=== PATIENT | female | born 1940 ===

== ENCOUNTER 2022-08-30 02:17 | Inpatient (IN) | payer MEDICARE, SELFPAY ==
[2022-08-30] VITALS (8 sets, daily range): BP systolic 134–172; BP diastolic 63–78; PULSE 71–85; RESP 12–18; TEMP 36.4–37.4; O2SAT 94–98; BMI 29.4
--- NOTE | 2022-08-30 02:37 | ED.GENADULT ---
HPI - General Adult General Chief complaint: Abdominal Pain Stated complaint: abdominal pain Time Seen by Provider: 08/30/22 02:27 Source: patient and EMS Mode of arrival: EMS Limitations: other (Dementia) History of Present Illness HPI narrative: Patient comes to the emergency room from home. Patient has history of dementia and lives by herself. Per EMS, the patient called because she has been complaining of abdominal pain all day. Patient stated the same here in the emergency room. EMS moist concern about the patient's current living situation. They recommend that the patient does not get discharged back to her current residence. EMS will file. Patient states that she has abdominal pain, no other complaints. Patient states that she was recently discharged from [facility], she does not remember how long or why she was in the hospital. Related Data Allergies Allergy/AdvReac Type Severity Reaction Status Date / Time codeine [CODEINE] Allergy Unknown VOMITING Unverified 11/13/19 16:24 morphine [MORPHINE] Allergy Unknown VOMIT Unverified 11/13/19 16:24 Penicillins [PENICILLINS] Allergy Unknown UNKNOWN Unverified 11/13/19 16:24 prednisone [PREDNISONE] Allergy Unknown HEADACHE Unverified 11/13/19 16:24 Sulfa (Sulfonamide Allergy Unknown UNKNOWN Unverified 11/13/19 16:24 Antibiotics) [SULFA (SULFONAMIDE ANTIBIOTICS)] From CEFTIN Allergy Unknown VOMITTING Uncoded 11/13/19 16:24 From DEMEROL Allergy Unknown VOMITTING Uncoded 11/13/19 16:24 Review of Systems Review of Systems: Constitutional : No Weight loss, No Fever, No Chills, No Night Sweats, No Fatigue, No Malaise ENT/Mouth : No Hearing loss, No Ear Pain, No Nasal Congestion, No Sinus Pain, No Hoarseness, No sore throat, No Rhinorrhea, No Swallowing Difficulty Eyes: No Eye Pain, No Swelling, No Redness, No Foreign Body, No Discharge, No Vision Changes Cardiovascular : No Chest Pain, No SOB, No Dyspnea on Exertion, No Orthopnea, No Edema, No Palpitations Respiratory : No Cough, No Sputum, No Wheezing, No Smoke Exposure, No Dyspnea Gastrointestinal : No Nausea, No Vomiting, No Diarrhea, No Constipation, complaining of abdominal pain Genitourinary : no irregular bleeding, No Dysuria, No Urinary Frequency, No Hematuria, No Urinary Incontinence, No Urgency, No Flank Pain, No Urinary Flow Changes, No Hesitancy Musculoskeletal : No joint pain, No Myalgias, No Joint Swelling Skin : No Skin Lesions, No rash Neuro : No Weakness, No Numbness, No Paresthesias, No Loss of Consciousness, No Dizziness, No Headache Psych : No Anxiety/Panic, No Depression, No SI/HI/AH/VH, No Social Issues, Heme/Lymph: No Bruising, No Bleeding,No Lymphadenopathy Endocrine : No Polyuria, No Polydipsia, No Temperature Intolerance COUNTS INCLUDE 234 BEDS AT THE [facility] Past Medical History Source: unable to obtain (Patient has dementia, does not remember her medical problem) Medical History (Updated 08/30/22 @ 06:29 by Katlyn Roe MD) Cognitive impairment Hypertension Kidney stone Sepsis Social History Social History Alcohol intake: never Smoked in Last 30 Days: No Use of substances other than those prescribed or required for medical reasons: No Advance Directives: No Advance Directives Information Provided: Yes Physical Exam ED Vital Signs: Vital Signs - 24 hr 08/30/22 02:53 08/30/22 03:15 08/30/22 04:35 Temperature 99.4 F 99.4 F 98.4 F Pulse Rate 85 85 80 Respiratory Rate 16 16 16 Blood Pressure 144/69 H 144/69 H 148/63 H Pulse Oximetry 94 94 97 Oxygen Delivery Method Room Air Room Air Room Air BMI result Body Mass Index 29.4 Const Other: Appearance: Alert. Oriented X3. No acute distress. Eyes: Pupils equal, round and reactive to light. ENT: Pharynx normal. Neck: Normal inspection. Neck supple. No lymph nodes noted. No crepitus CVS: Normal heart rate and rhythm. Pulses normal. Normal S1 and S2 Respiratory: No respiratory distress. Breath sounds normal. No Wheezing. No rales Abdomen: Soft does not seem to be tender to palpation, no rigidity, no rebound. : Patient has a Smith catheter in place, the urine has brownish tea-colored urine Skin: Skin warm and dry. Normal skin color. Normal skin turgor. Extremities: No lower extremity edema. No Lacerations. No Rash Neuro: Oriented X 3. No motor deficit. No sensory deficit. Moving all extremities. No slurred speech. CN 2 through 12 grossly intact Psych: calm, cooperative, normal affect Course Course Course Narrative: -we requested records from [facility] -we did not have a clear history from the patient other than she was recently at [facility] in that she has abdominal pain. -all of her labs and imaging pending I was able to obtain records from [facility]. Patient was last seen at [facility] yesterday. Patient was seen for pink/reddish urine. They mentioned in their note the patient was recently hospitalized with urosepsis secondary to an obstructing stone status post ureteral stent. Patient had already completed a 7 day course of ceftriaxone and was discharged with a Smith catheter in place which was started on August 25. Patient has a follow-up appointment on September 13 for Smith removal and voiding trial. Patient was discharged yesterday with a prescription of OfferIQ for acute uncomplicated cystitis Medications Administered Discontinued Medications Generic Name Dose Route Start Last Admin Trade Name Freq PRN Reason Stop Dose Admin Ceftriaxone Sodium 1 gm/ 50 mls @ 100 mls/hr 08/30/22 03:30 08/30/22 05:47 Sodium Chloride IV 08/30/22 03:59 Infused ONCE ONE Infusion Ceftriaxone Sodium 1 gm/ 50 mls @ 100 mls/hr 08/30/22 05:01 08/30/22 05:30 Sodium Chloride IV 08/30/22 05:30 Not Given ONCE ONE Iohexol 85 ml 08/30/22 04:13 08/30/22 04:14 Iohexol 350 Mg/Ml 100 Ml Infus..Btl IV 08/30/22 04:14 85 ml ONCE ONE Administration Ondansetron HCl 4 mg 08/30/22 03:30 08/30/22 04:13 Ondansetron Hcl 4 Mg/2 Ml Vial IVPUSH 08/30/22 03:31 4 mg ONCE ONE Administration Medical Decision Making Medical Decision Making [facility] Narrative: -I reviewed patient's labs, white blood cell count 6.1, coagulation, chemistry unremarkable. Lipase is is slightly elevated at 93, -UA positive for UTI, admission considered. Patient given a dose of ceftriaxone, patient to continue p.o. cefuroxime open discharge -03:32: Patient has no fever, blood pressure 144/69, not tachycardic, sepsis is not suspected. -Patient receiving IV fluids and ceftriaxone -my interpretation of CT scan, left stents in place I spoke with our radiologist on-call, patient had a CT scan of the abdomen done, incidentally, we found a pulmonary embolism in the right lung. -patient has dementia, confused at times, unclear she can make her own decisions. -we tried calling the phone number listed as her contact emergency, no one picked up the phone. -discussing with Dr. Tavarez, patient will be admitted -As mentioned above, EMS reported that the patient lives by herself. Patient states that she lives with family? However, after I spoke with her again, patient states that she does live by herself. Unknown if she has a healthcare proxy. -patient may need a psych eval to assess for capacity Differential Diagnosis Differential Diagnoses: The differential diagnosis associated with the presentation includes (UTI, pyelonephritis, pulmonary embolism) Admission/Observation Consideration of admission/observation: Escalation of care including admission/observation considered Consult Healthcare Provider Management of the patient was discussed with: Hospitalist Lab Data MDM Lab Attestation statement: I reviewed the patient's lab results. 08/30/22 02:48 08/30/22 02:48 Labs: Lab Results 08/30/22 08/30/22 08/30/22 Range/Units 02:48 02:48 02:48 WBC 6.1 (4.8-10.8) X10*3/uL RBC 4.68 (4.20-5.50) X10*6/uL Hgb 13.3 (12.0-16.0) g/dl Hct 40.5 (37.0-47.0) % MCV 86.5 (80.0-98.0) fL MCH 28.4 (27.0-33.0) pg MCHC 32.8 (31.0-35.0) g/dl RDW 14.1 (11.0-16.0) % Plt Count 369 (160-400) X10*3/uL MPV 9.7 (9.4-12.3) fL Immature Gran % (Auto) 0.7 H (0.0-0.4) % Neut % (Auto) 62.9 (45-73) % Lymph % (Auto) 24.2 (20-40) % Traverse % (Auto) 11.0 (2-11) % Eos % (Auto) 0.7 (0-4) % Baso % (Auto) 0.5 (0-2) % Lymph # (Auto) 1.5 (1.2-4.9) X10*3/uL Traverse # (Auto) 0.7 (0.1-1.2) X10*3/uL Eos # (Auto) 0.0 (0.0-0.4) X10*3/uL Baso # (Auto) 0.0 (0.0-0.2) X10*3/uL Abs Immat Gran (auto) 0.04 H (0.00-0.03) X10*3/uL Absolute Neuts (auto) 3.9 (2.0-8.3) x10*3/uL Absolute Nucleated RBC 0.000 (0.0-0.012) X10*3/uL Nucleated RBC % (auto) 0.0 (0.0-0.2) /100WBC PT 11.9 (10.0-13.1) SEC INR 1.0 (0.9-1.1) Sodium 138 (135-145) mmol/L Potassium 3.7 (3.3-5.1) mmol/L Chloride 107 (96-108) mmol/L Carbon Dioxide 18 L (22-29) mmol/L Anion Gap 17 (12-20) BUN 18 H (9-16) mg/dL Creatinine 0.70 (0.5-1.4) mg/dL Estim Creat Clear Calc 54.7 Estimated GFR > 60 Random Glucose 95 (60-115) mg/dL Lactic Acid (0.5-2.0) mmol/L Calcium 9.6 (8.4-10.2) mg/dL Magnesium 2.1 (1.6-2.6) mg/dL Total Bilirubin 0.8 (0.0-1.0) mg/dL Direct Bilirubin 0.3 (0.0-0.5) mg/dL AST 23 (5-31) U/L ALT 12 (0-31) U/L Alkaline Phosphatase 163 H (39-117) U/L Ammonia (13-55) umol/L Troponin I High Sens (<3.5-17.0) ng/L B-Natriuretic Peptide (<100) pg/mL Total Protein 7.2 (6.5-8.0) g/dL Albumin 3.5 (3.5-5.0) g/dL Lipase 93 H (8-78) U/L Urine Color Urine Appearance Urine pH (5.0-9.0) Ur Specific [place] (1.005-1.025) Urine Protein (Neg-Trace) mg/dL Urine Glucose (UA) (Negative) mg/dL Urine Ketones (Negative) mg/dL Urine Blood (Negative) Urine Nitrite (Negative) Ur Leukocyte Esterase (Negative) Urine RBC (0-2) /HPF Urine WBC (0-5) /HPF Ur Squamous Epith Cells (0-2) /HPF Urine Bacteria (None Seen) Hyaline Casts (0-2) /LPF Urine Opiates Screen (Not Detect) Urine Fentanyl Screen (Not Detect) Ur Barbiturates Screen (Not Detect) Ur Phencyclidine Scrn (Not Detect) Ur Amphetamines Screen (Not Detect) U Benzodiazepines Scrn (Not Detect) Urine Cocaine Screen (Not Detect) U Marijuana (THC) Screen (Not Detect) Ethyl Alcohol < 10 mg/dL 08/30/22 08/30/22 08/30/22 Range/Units 02:48 02:48 02:48 WBC (4.8-10.8) X10*3/uL RBC (4.20-5.50) X10*6/uL Hgb (12.0-16.0) g/dl Hct (37.0-47.0) % MCV (80.0-98.0) fL MCH (27.0-33.0) pg MCHC (31.0-35.0) g/dl RDW (11.0-16.0) % Plt Count (160-400) X10*3/uL MPV (9.4-12.3) fL Immature Gran % (Auto) (0.0-0.4) % Neut % (Auto) (45-73) % Lymph % (Auto) (20-40) % Traverse % (Auto) (2-11) % Eos % (Auto) (0-4) % Baso % (Auto) (0-2) % Lymph # (Auto) (1.2-4.9) X10*3/uL Traverse # (Auto) (0.1-1.2) X10*3/uL Eos # (Auto) (0.0-0.4) X10*3/uL Baso # (Auto) (0.0-0.2) X10*3/uL Abs Immat Gran (auto) (0.00-0.03) X10*3/uL Absolute Neuts (auto) (2.0-8.3) x10*3/uL Absolute Nucleated RBC (0.0-0.012) X10*3/uL Nucleated RBC % (auto) (0.0-0.2) /100WBC PT (10.0-13.1) SEC INR (0.9-1.1) Sodium Cancelled (135-145) mmol/L Potassium Cancelled (3.3-5.1) mmol/L Chloride Cancelled (96-108) mmol/L Carbon Dioxide Cancelled (22-29) mmol/L Anion Gap Cancelled (12-20) BUN Cancelled (9-16) mg/dL Creatinine Cancelled (0.5-1.4) mg/dL Estim Creat Clear Calc Cancelled Estimated GFR Cancelled Random Glucose Cancelled (60-115) mg/dL Lactic Acid 1.1 (0.5-2.0) mmol/L Calcium Cancelled (8.4-10.2) mg/dL Magnesium Cancelled (1.6-2.6) mg/dL Total Bilirubin (0.0-1.0) mg/dL Direct Bilirubin (0.0-0.5) mg/dL AST (5-31) U/L ALT (0-31) U/L Alkaline Phosphatase (39-117) U/L Ammonia 28 (13-55) umol/L Troponin I High Sens (<3.5-17.0) ng/L B-Natriuretic Peptide (<100) pg/mL Total Protein (6.5-8.0) g/dL Albumin (3.5-5.0) g/dL Lipase (8-78) U/L Urine Color Urine Appearance Urine pH (5.0-9.0) Ur Specific [place] (1.005-1.025) Urine Protein (Neg-Trace) mg/dL Urine Glucose (UA) (Negative) mg/dL Urine Ketones (Negative) mg/dL Urine Blood (Negative) Urine Nitrite (Negative) Ur Leukocyte Esterase (Negative) Urine RBC (0-2) /HPF Urine WBC (0-5) /HPF Ur Squamous Epith Cells (0-2) /HPF Urine Bacteria (None Seen) Hyaline Casts (0-2) /LPF Urine Opiates Screen (Not Detect) Urine Fentanyl Screen (Not Detect) Ur Barbiturates Screen (Not Detect) Ur Phencyclidine Scrn (Not Detect) Ur Amphetamines Screen (Not Detect) U Benzodiazepines Scrn (Not Detect) Urine Cocaine Screen (Not Detect) U Marijuana (THC) Screen (Not Detect) Ethyl Alcohol Cancelled mg/dL 08/30/22 08/30/22 08/30/22 Range/Units 02:48 02:48 02:48 WBC (4.8-10.8) X10*3/uL RBC (4.20-5.50) X10*6/uL Hgb (12.0-16.0) g/dl Hct (37.0-47.0) % MCV (80.0-98.0) fL MCH (27.0-33.0) pg MCHC (31.0-35.0) g/dl RDW (11.0-16.0) % Plt Count (160-400) X10*3/uL MPV (9.4-12.3) fL Immature Gran % (Auto) (0.0-0.4) % Neut % (Auto) (45-73) % Lymph % (Auto) (20-40) % Traverse % (Auto) (2-11) % Eos % (Auto) (0-4) % Baso % (Auto) (0-2) % Lymph # (Auto) (1.2-4.9) X10*3/uL Traverse # (Auto) (0.1-1.2) X10*3/uL Eos # (Auto) (0.0-0.4) X10*3/uL Baso # (Auto) (0.0-0.2) X10*3/uL Abs Immat Gran (auto) (0.00-0.03) X10*3/uL Absolute Neuts (auto) (2.0-8.3) x10*3/uL Absolute Nucleated RBC (0.0-0.012) X10*3/uL Nucleated RBC % (auto) (0.0-0.2) /100WBC PT (10.0-13.1) SEC INR (0.9-1.1) Sodium (135-145) mmol/L Potassium (3.3-5.1) mmol/L Chloride (96-108) mmol/L Carbon Dioxide (22-29) mmol/L Anion Gap (12-20) BUN (9-16) mg/dL Creatinine (0.5-1.4) mg/dL Estim Creat Clear Calc Estimated GFR Random Glucose (60-115) mg/dL Lactic Acid (0.5-2.0) mmol/L Calcium (8.4-10.2) mg/dL Magnesium (1.6-2.6) mg/dL Total Bilirubin (0.0-1.0) mg/dL Direct Bilirubin (0.0-0.5) mg/dL AST (5-31) U/L ALT (0-31) U/L Alkaline Phosphatase (39-117) U/L Ammonia (13-55) umol/L Troponin I High Sens 2.9 (<3.5-17.0) ng/L B-Natriuretic Peptide 13 (<100) pg/mL Total Protein (6.5-8.0) g/dL Albumin (3.5-5.0) g/dL Lipase (8-78) U/L Urine Color Red A Urine Appearance Cloudy Urine pH 5.5 (5.0-9.0) Ur Specific [place] 1.015 (1.005-1.025) Urine Protein 300 (3+) H (Neg-Trace) mg/dL Urine Glucose (UA) Negative (Negative) mg/dL Urine Ketones Negative (Negative) mg/dL Urine Blood Large (3+) H (Negative) Urine Nitrite Negative (Negative) Ur Leukocyte Esterase Large (3+) H (Negative) Urine RBC >20 H (0-2) /HPF Urine WBC >50 H (0-5) /HPF Ur Squamous Epith Cells 0-2 (0-2) /HPF Urine Bacteria Trace (None Seen) Hyaline Casts 11-20 (0-2) /LPF Urine Opiates Screen (Not Detect) Urine Fentanyl Screen (Not Detect) Ur Barbiturates Screen (Not Detect) Ur Phencyclidine Scrn (Not Detect) Ur Amphetamines Screen (Not Detect) U Benzodiazepines Scrn (Not Detect) Urine Cocaine Screen (Not Detect) U Marijuana (THC) Screen (Not Detect) Ethyl Alcohol mg/dL 07/05/23 Range/Units 02:48 WBC (4.8-10.8) X10*3/uL RBC (4.20-5.50) X10*6/uL Hgb (12.0-16.0) g/dl Hct (37.0-47.0) % MCV (80.0-98.0) fL MCH (27.0-33.0) pg MCHC (31.0-35.0) g/dl RDW (11.0-16.0) % Plt Count (160-400) X10*3/uL MPV (9.4-12.3) fL Immature Gran % (Auto) (0.0-0.4) % Neut % (Auto) (45-73) % Lymph % (Auto) (20-40) % Traverse % (Auto) (2-11) % Eos % (Auto) (0-4) % Baso % (Auto) (0-2) % Lymph # (Auto) (1.2-4.9) X10*3/uL [place]verse # (Auto) (0.1-1.2) X10*3/uL Eos # (Auto) (0.0-0.4) X10*3/uL Baso # (Auto) (0.0-0.2) X10*3/uL Abs Immat Gran (auto) (0.00-0.03) X10*3/uL Absolute Neuts (auto) (2.0-8.3) x10*3/uL Absolute Nucleated RBC (0.0-0.012) X10*3/uL Nucleated RBC % (auto) (0.0-0.2) /100WBC PT (10.0-13.1) SEC INR (0.9-1.1) Sodium (135-145) mmol/L Potassium (3.3-5.1) mmol/L Chloride (96-108) mmol/L Carbon Dioxide (22-29) mmol/L Anion Gap (12-20) BUN (9-16) mg/dL Creatinine (0.5-1.4) mg/dL Estim Creat Clear Calc Estimated GFR Random Glucose (60-115) mg/dL Lactic Acid (0.5-2.0) mmol/L Calcium (8.4-10.2) mg/dL Magnesium (1.6-2.6) mg/dL Total Bilirubin (0.0-1.0) mg/dL Direct Bilirubin (0.0-0.5) mg/dL AST (5-31) U/L ALT (0-31) U/L Alkaline Phosphatase (39-117) U/L Ammonia (13-55) umol/L Troponin I High Sens (<3.5-17.0) ng/L B-Natriuretic Peptide (<100) pg/mL Total Protein (6.5-8.0) g/dL Albumin (3.5-5.0) g/dL Lipase (8-78) U/L Urine Color Urine Appearance Urine pH (5.0-9.0) Ur Specific [place] (1.005-1.025) Urine Protein (Neg-Trace) mg/dL Urine Glucose (UA) (Negative) mg/dL Urine Ketones (Negative) mg/dL Urine Blood (Negative) Urine Nitrite (Negative) Ur Leukocyte Esterase (Negative) Urine RBC (0-2) /HPF Urine WBC (0-5) /HPF Ur Squamous Epith Cells (0-2) /HPF Urine Bacteria (None Seen) Hyaline Casts (0-2) /LPF Urine Opiates Screen Not Detected (Not Detect) Urine Fentanyl Screen Not Detected (Not Detect) Ur Barbiturates Screen Not Detected (Not Detect) Ur Phencyclidine Scrn Not Detected (Not Detect) Ur Amphetamines Screen Not Detected (Not Detect) U Benzodiazepines Scrn Not Detected (Not Detect) Urine Cocaine Screen Not Detected (Not Detect) U Marijuana (THC) Screen Not Detected (Not Detect) Ethyl Alcohol mg/dL Radiology Impression Discussion of test interpretation with radiology: I have reviewed the radiologist's reading. Radiologist Impression: FINDINGS: LUNG BASES: Incidental filling defects in the right lower lobe posterior basal segmental pulmonary arteries. Patchy low density opacities in the right lower lobe posteriorly may represent corresponding evolving pulmonary infarcts or ischemic pneumonitis with or without atelectasis. LIVER, GALLBLADDER, AND BILIARY TREE: The liver is normal in size, shape, and attenuation. Subcentimeter cyst in hepatic segment 5. No suspicious hepatic lesion or no intra or extrahepatic biliary ductal dilatation is present. The gallbladder is unremarkable with no evidence of radiopaque gallstones, gallbladder wall thickening, or obvious pericholecystic inflammatory changes.? PANCREAS: Unremarkable.? SPLEEN: Unremarkable.? ADRENAL GLANDS: Unremarkable.? KIDNEYS AND URETERS: Left nephroureteral stent in place. Mild accompanying urothelial thickening and hyperemia may relate to chronic inflammation from the indwelling stent. Tiny calcifications layer dependently within the left renal pelvis, and in the inferior left renal calyces. Further assessment is confounded by trace urographic leak screening contrast bilaterally. Kidneys enhance symmetrically. No hydronephrosis. There are a few subcentimeter renal cysts which are simple in appearance. No follow-up imaging recommended. BLADDER: Decompressed by Smith catheter.? GASTROINTESTINAL TRACT: Small sliding-type hiatal hernia. Stomach otherwise unremarkable. Normal small bowel. Scattered colonic diverticula, most concentrated within the sigmoid colon. No evidence of diverticulitis.? ABDOMINAL WALL: No significant hernia is appreciated.? LYMPH NODES: Normal. VASCULAR: Aorta is atherosclerotic but normal caliber. Patent vascular structures. PELVIC VISCERA: Hysterectomy. No adnexal abnormalities.? OSSEOUS STRUCTURES: No acute or suspicious osseous abnormalities. New but chronic appearing mild compression deformity of the L3 superior endplate. CT/CT abdomen pelvis w IV con IMPRESSION: *? Incidental right lower lobe posterior basal segmental pulmonary emboli, with associated probable small pulmonary infarct(s) involving the right lower lobe posterior basal segment. *? Left nephroureteral stent in place. Tiny calcifications layer dependently within the left renal pelvis and inferior left renal calyces. *? Presumably mild reactive urothelial hyperemia of the left renal pelvis, without evidence of kian nephritis/pyelonephritis. *? Scattered colonic diverticula without evidence of diverticulitis. ? ? This critical result was discussed with Dr Roe at 08/30/2022 5:10 AM and it was ascertained that the content and urgency of the report was understood at the time of direct communication. Independent Historian Clinical information obtained from an independent historian. History obtained from or confirmed by: EMS External Record Review External record reviewed: Other ([facility]) Critical Care Time Critical Care Time Critical Care Time: Yes Total Critical Care Time: 90 Attestation: I have personally provided critical care time. Time includes review of lab data, radiology results, discussion with consultants, and monitoring for potential decompensation. Intervention performed as documented. Discharge Plan Discharge Clinical Impression: Pulmonary embolism, Acute UTI, Dementia Patient Disposition: Admitted As Inpatient
--- NOTE | 2022-08-30 03:17 | PC.NURSE ---
Pt presents to ER via EMS for right side flank pain. Pt has hx of Alzheimer's and is a poor historian. Per EMS, pt was seen and admitted for a UTI about a month ago. Pt has a chronic michaud, assumed to be from the previous admission. EMS also reported that pt was making some SI statements. EMS reported pt lives alone, and has a hard time caring for herself. EMS filed a report. I made MD aware that pt should be seen by case management. Pt presents alert and oriented to person, place, and time, but is unable to recall events. Pt stated she had pain at the beginning of the assessment, then denied it at the end. Pt's michaud is draining tea-colored urine. Pt reports she feels urgency to go. Denies nausea/vomiting/sob. A 20g IV was inserted in the left AC, labs were drawn, urines were collected, EKG obtained. Pt waiting lab results at this time.
--- NOTE | 2022-08-30 03:53 | MHC.EDTECH ---
Late Entry, Patient arrived by ambulance, patient was changed into hospital attire, vitals taken then placed on property assessment monitor, EKG,labs and UA obtained. Call quinn within reach
--- NOTE | 2022-08-30 04:16 | PC.NURSE ---
Pt reporting spots in front of her eyes, saying they are new spots, and they look like a hairnet. Pt also asked if she has a catheter. She does, in fact, have a chronic catheter.
--- NOTE | 2022-08-30 04:45 | MHC.EDTECH ---
This tech completed hourly rounding,vitals were taken and warm blanket giving. Pt is resting comfortably at this time and call quinn is within reach.
--- NOTE | 2022-08-30 05:40 | PC.NURSE ---
Attempted to call pt's home, hoping someone is home, no response. I then called Evelin, grandchild listed as a contact. There was no answer, I left a voicemail requesting a call back.
--- NOTE | 2022-08-30 05:46 | PC.NURSE ---
Pt states her family around is her son Bud Woods and his girlfriend Marilin Cardenas. Unable to give contact information.
--- NOTE | 2022-08-30 06:29 | PM.IMHP ---
History of Present Illness Date of Service: 08/30/22 Chief Complaint: Abdominal pain This is a 81-year-old female with pertinent history of essential hypertension, dementia presents to the emergency department for evaluation of abdominal pain. Patient was recently admitted with urosepsis secondary to obstructing stone status post ureteral stent placement and completed 7 day course of ceftriaxone. Patient was discharged with Smith in place on 08/25 for urine retention. She has an appointment with Urology on 09/13 for Smith removal and voiding trial. Patient is a poor historian. As per EMS, patient's current living situation is not good and they recommend that the patient not be discharged to her current residence. History obtained from chart review and ER provider. Unable to obtain review of systems. In the emergency department, imaging with PE Review of Systems Review of Systems: Yes Unobtainable due to mental condition PMFSH Medical History Cognitive impairment Hypertension Kidney stone Sepsis Pertinent family history: Not significant Social History Alcohol intake: never Smoked in Last 30 Days: No Use of substances other than those prescribed or required for medical reasons: No Advance Directives: No Advance Directives Information Provided: Yes Meds Allergies Allergy/AdvReac Type Severity Reaction Status Date / Time codeine [CODEINE] Allergy Unknown VOMITING Unverified 11/13/19 16:24 morphine [MORPHINE] Allergy Unknown VOMIT Unverified 11/13/19 16:24 Penicillins [PENICILLINS] Allergy Unknown UNKNOWN Unverified 11/13/19 16:24 prednisone [PREDNISONE] Allergy Unknown HEADACHE Unverified 11/13/19 16:24 Sulfa (Sulfonamide Allergy Unknown UNKNOWN Unverified 11/13/19 16:24 Antibiotics) [SULFA (SULFONAMIDE ANTIBIOTICS)] From CEFTIN Allergy Unknown VOMITTING Uncoded 11/13/19 16:24 From DEMEROL Allergy Unknown VOMITTING Uncoded 11/13/19 16:24 Active Medications: Current Medications Acetaminophen (Acetaminophen 325 Mg Tablet) 650 mg PO Q6H PRN PRN Reason: Pain, Mild (Pain Scale 1-3) Enoxaparin Sodium (Enoxaparin Sodium 80 Mg/0.8 Ml Syringe) 70 mg SUBCUT Q12H JODI Melatonin (Melatonin 3 Mg Tablet) 6 mg PO BEDTIME PRN PRN Reason: Insomnia Ondansetron HCl (Ondansetron Hcl 4 Mg/2 Ml Vial) 4 mg IVPUSH Q8H PRN PRN Reason: Nausea and Vomiting Sodium Chloride (0.9 % Sodium Chloride Flush 3 Ml Syringe) 3 ml IVFLUSH QSHIFT [facility] Physical Exam Vital Signs and Narrative: Vital Signs: Last Vital Signs Temp 98.4 F 08/30/22 04:35 Pulse 80 08/30/22 04:35 Resp 16 08/30/22 04:35 BP 148/63 H 08/30/22 04:35 Pulse Ox 97 08/30/22 04:35 O2 Del Method Room Air 08/30/22 04:35 BMI result Body Mass Index 29.4 Elderly female lying in bed in no distress Neck supple, no JVD Regular rate and rhythm, S1-S2 heard Decreased breath sound at bases Abdomen soft nontender, no guarding, no rigidity Patient is awake, alert and oriented to self, disoriented to place, time and person ; no focal motor deficit Psych: Normal mood No pedal edema Results Labs 08/30/22 02:48 08/30/22 02:48 Labs: Laboratory Results - last 24 hr 08/30/22 08/30/22 08/30/22 02:48 02:48 02:48 MCV 86.5 MCH 28.4 MCHC 32.8 RDW 14.1 Plt Count 369 MPV 9.7 Immature Gran % (Auto) 0.7 H Neut % (Auto) 62.9 Lymph % (Auto) 24.2 [place] % (Auto) 11.0 Eos % (Auto) 0.7 Baso % (Auto) 0.5 Lymph # (Auto) 1.5 [place] # (Auto) 0.7 Eos # (Auto) 0.0 Baso # (Auto) 0.0 Abs Immat Gran (auto) 0.04 H Absolute Neuts (auto) 3.9 Absolute Nucleated RBC 0.000 Nucleated RBC % (auto) 0.0 PT 11.9 INR 1.0 Anion Gap 17 Estim Creat Clear Calc 54.7 Estimated GFR > 60 Random Glucose 95 Lactic Acid Calcium 9.6 Magnesium 2.1 Total Bilirubin 0.8 Direct Bilirubin 0.3 AST 23 ALT 12 Alkaline Phosphatase 163 H Ammonia Troponin I High Sens B-Natriuretic Peptide Total Protein 7.2 Albumin 3.5 Lipase 93 H Urine Color Urine Appearance Urine pH Ur Specific [place] Urine Protein Urine Glucose (UA) Urine Ketones Urine Blood Urine Nitrite Ur Leukocyte Esterase Urine RBC Urine WBC Ur Squamous Epith Cells Urine Bacteria Hyaline Casts Urine Opiates Screen Urine Fentanyl Screen Ur Barbiturates Screen Ur Phencyclidine Scrn Ur Amphetamines Screen U Benzodiazepines Scrn Urine Cocaine Screen U Marijuana (THC) Screen Ethyl Alcohol < 10 08/30/22 08/30/22 08/30/22 02:48 02:48 02:48 MCV MCH MCHC RDW Plt Count MPV Immature Gran % (Auto) Neut % (Auto) Lymph % (Auto) [place] % (Auto) Eos % (Auto) Baso % (Auto) Lymph # (Auto) [place] # (Auto) Eos # (Auto) Baso # (Auto) Abs Immat Gran (auto) Absolute Neuts (auto) Absolute Nucleated RBC Nucleated RBC % (auto) PT INR Anion Gap Cancelled Estim Creat Clear Calc Cancelled Estimated GFR Cancelled Random Glucose Cancelled Lactic Acid 1.1 Calcium Cancelled Magnesium Cancelled Total Bilirubin Direct Bilirubin AST ALT Alkaline Phosphatase Ammonia 28 Troponin I High Sens B-Natriuretic Peptide Total Protein Albumin Lipase Urine Color Urine Appearance Urine pH Ur Specific [place] Urine Protein Urine Glucose (UA) Urine Ketones Urine Blood Urine Nitrite Ur Leukocyte Esterase Urine RBC Urine WBC Ur Squamous Epith Cells Urine Bacteria Hyaline Casts Urine Opiates Screen Urine Fentanyl Screen Ur Barbiturates Screen Ur Phencyclidine Scrn Ur Amphetamines Screen U Benzodiazepines Scrn Urine Cocaine Screen U Marijuana (THC) Screen Ethyl Alcohol Cancelled 08/30/22 08/30/22 08/30/22 02:48 02:48 02:48 MCV MCH MCHC RDW Plt Count MPV Immature Gran % (Auto) Neut % (Auto) Lymph % (Auto) [place] % (Auto) Eos % (Auto) Baso % (Auto) Lymph # (Auto) [place] # (Auto) Eos # (Auto) Baso # (Auto) Abs Immat Gran (auto) Absolute Neuts (auto) Absolute Nucleated RBC Nucleated RBC % (auto) PT INR Anion Gap Estim Creat Clear Calc Estimated GFR Random Glucose Lactic Acid Calcium Magnesium Total Bilirubin Direct Bilirubin AST ALT Alkaline Phosphatase Ammonia Troponin I High Sens 2.9 B-Natriuretic Peptide 13 Total Protein Albumin Lipase Urine Color Red A Urine Appearance Cloudy Urine pH 5.5 Ur Specific [place] 1.015 Urine Protein 300 (3+) H Urine Glucose (UA) Negative Urine Ketones Negative Urine Blood Large (3+) H Urine Nitrite Negative Ur Leukocyte Esterase Large (3+) H Urine RBC >20 H Urine WBC >50 H Ur Squamous Epith Cells 0-2 Urine Bacteria Trace Hyaline Casts 11-20 Urine Opiates Screen Urine Fentanyl Screen Ur Barbiturates Screen Ur Phencyclidine Scrn Ur Amphetamines Screen U Benzodiazepines Scrn Urine Cocaine Screen U Marijuana (THC) Screen Ethyl Alcohol 08/30/22 02:48 MCV MCH MCHC RDW Plt Count MPV Immature Gran % (Auto) Neut % (Auto) Lymph % (Auto) [place] % (Auto) Eos % (Auto) Baso % (Auto) Lymph # (Auto) [place] # (Auto) Eos # (Auto) Baso # (Auto) Abs Immat Gran (auto) Absolute Neuts (auto) Absolute Nucleated RBC Nucleated RBC % (auto) PT INR Anion Gap Estim Creat Clear Calc Estimated GFR Random Glucose Lactic Acid Calcium Magnesium Total Bilirubin Direct Bilirubin AST ALT Alkaline Phosphatase Ammonia Troponin I High Sens B-Natriuretic Peptide Total Protein Albumin Lipase Urine Color Urine Appearance Urine pH Ur Specific [place] Urine Protein Urine Glucose (UA) Urine Ketones Urine Blood Urine Nitrite Ur Leukocyte Esterase Urine RBC Urine WBC Ur Squamous Epith Cells Urine Bacteria Hyaline Casts Urine Opiates Screen Not Detected Urine Fentanyl Screen Not Detected Ur Barbiturates Screen Not Detected Ur Phencyclidine Scrn Not Detected Ur Amphetamines Screen Not Detected U Benzodiazepines Scrn Not Detected Urine Cocaine Screen Not Detected U Marijuana (THC) Screen Not Detected Ethyl Alcohol Imaging Radiologist's Impressions: Impressions Abdomen/Pelvis CT 08/30/22 04:10 IMPRESSION: * Incidental right lower lobe posterior basal segmental pulmonary emboli, with associated probable small pulmonary infarct(s) involving the right lower lobe posterior basal segment. * Left nephroureteral stent in place. Tiny calcifications layer dependently within the left renal pelvis and inferior left renal calyces. * Presumably mild reactive urothelial hyperemia of the left renal pelvis, without evidence of kian nephritis/pyelonephritis. * Scattered colonic diverticula without evidence of diverticulitis. This critical result was discussed with Dr Roe at 08/30/2022 5:10 AM and it was ascertained that the content and urgency of the report was understood at the time of direct communication. Assessment and Plan (1) Pulmonary embolism: Status: Acute (2) Acute UTI: Status: Acute Plan This is a 81-year-old female with pertinent history of essential hypertension, dementia presents to the emergency department for evaluation of abdominal pain. #. Acute non massive right lower lobe PE: Will admit patient and initiating therapeutic Lovenox. Transition to p.o. anticoagulants upon discharge #. Acute UTI: Initiating empiric IV Rocephin. Follow urine culture #. Living situation. Patient's living situation poor as per EMS. Will consult case technician #. Dementia: On donepezil. Maintain sleep-wake cycle #. Essential hypertension. On lisinopril Med rec pending DVT prophylaxis: Therapeutic Lovenox Full code. Unable to contact family members. Readdress code status in a.m. Cardiac diet Admit as inpatient and will require two night minimum hospital stay for IV antibiotics and therapeutic Lovenox. Dispo pending Time Spent With Patient Time: Total time managing care of this patient today ____ minutes. Quality Stroke Does the patient have a stroke diagnosis?: No VTE Prior VTE?: No VTE Risk Level:: Medical - moderate - high VTE Device Contraindication: Treatment Not Indicated VTE Drug Contraindication: Treatment Not Indicated
--- NOTE | 2022-08-30 07:08 | PC.NURSE ---
sr on monitor, skin wpd, alert, no complaints, no sob or pain, nad
--- NOTE | 2022-08-30 07:53 | PHA.MEDREC ---
Pharmacy Consult ? Medication Reconciliation Pharmacy has completed the medication reconciliation. Spoke to patient at bedside, said she takes her blood pressure pill and her Donepezil when she has it.
--- NOTE | 2022-08-30 09:54 | HO.PM.IMPN ---
Subjective Subjective Date of Service: 08/30/22 Interval History: flank pain Physical Exam Vital Signs: Vital Signs: Last Vital Signs Temp 97.6 F 08/30/22 09:32 Pulse 71 08/30/22 09:32 Resp 18 08/30/22 09:32 BP 172/78 H 08/30/22 09:32 Pulse Ox 97 08/30/22 09:32 O2 Del Method Room Air 08/30/22 09:32 BMI result Body Mass Index 29.4 alert, oriented times 3, but poor historian, and insight Objective Data Active Medications Acetaminophen (Acetaminophen 325 Mg Tablet) 650 mg PO Q6H PRN PRN Reason: Pain, Mild (Pain Scale 1-3) Donepezil HCl (Donepezil Hcl 10 Mg Tablet) 10 mg PO BEDTIME JODI Enoxaparin Sodium (Enoxaparin Sodium 80 Mg/0.8 Ml Syringe) 70 mg SUBCUT Q12H [facility] Last Admin: 08/30/22 07:05 Dose: 70 mg Documented By: KATERYNA Ceftriaxone Sodium 1 gm/ (Sodium Chloride) 50 mls @ 100 mls/hr IV Q24H [facility] Lisinopril (Lisinopril 10 Mg Tablet) 30 mg PO DAILY JODI; Protocol Melatonin (Melatonin 3 Mg Tablet) 6 mg PO BEDTIME PRN PRN Reason: Insomnia Multivitamins/Vitamin C (Multivitamin Tablet) 1 tab PO DAILY [facility] Ondansetron HCl (Ondansetron Hcl 4 Mg/2 Ml Vial) 4 mg IVPUSH Q8H PRN PRN Reason: Nausea and Vomiting Pharmacy Consult (Consult Rx Perform Med Rec) 1 each MISCELLANE ONCE PRN PRN Reason: Consult order Sodium Chloride (0.9 % Sodium Chloride Flush 3 Ml Syringe) 3 ml IVFLUSH QSHIFT [facility] Last Admin: 08/30/22 07:06 Dose: 3 ml Documented By: KATERYNA Labs 08/30/22 02:48 08/30/22 02:48 Labs: Laboratory Results - last 24 hr 08/30/22 08/30/22 08/30/22 02:48 02:48 02:48 MCV 86.5 MCH 28.4 MCHC 32.8 RDW 14.1 Plt Count 369 MPV 9.7 Immature Gran % (Auto) 0.7 H Neut % (Auto) 62.9 Lymph % (Auto) 24.2 [place] % (Auto) 11.0 Eos % (Auto) 0.7 Baso % (Auto) 0.5 Lymph # (Auto) 1.5 [place] # (Auto) 0.7 Eos # (Auto) 0.0 Baso # (Auto) 0.0 Abs Immat Gran (auto) 0.04 H Absolute Neuts (auto) 3.9 Absolute Nucleated RBC 0.000 Nucleated RBC % (auto) 0.0 PT 11.9 INR 1.0 Anion Gap 17 Estim Creat Clear Calc 54.7 Estimated GFR > 60 Random Glucose 95 Lactic Acid Calcium 9.6 Magnesium 2.1 Total Bilirubin 0.8 Direct Bilirubin 0.3 AST 23 ALT 12 Alkaline Phosphatase 163 H Ammonia Troponin I High Sens B-Natriuretic Peptide Total Protein 7.2 Albumin 3.5 Lipase 93 H Urine Color Urine Appearance Urine pH Ur Specific [place] Urine Protein Urine Glucose (UA) Urine Ketones Urine Blood Urine Nitrite Ur Leukocyte Esterase Urine RBC Urine WBC Ur Squamous Epith Cells Urine Bacteria Hyaline Casts Urine Opiates Screen Urine Fentanyl Screen Ur Barbiturates Screen Ur Phencyclidine Scrn Ur Amphetamines Screen U Benzodiazepines Scrn Urine Cocaine Screen U Marijuana (THC) Screen Ethyl Alcohol < 10 08/30/22 08/30/22 08/30/22 02:48 02:48 02:48 MCV MCH MCHC RDW Plt Count MPV Immature Gran % (Auto) Neut % (Auto) Lymph % (Auto) [place] % (Auto) Eos % (Auto) Baso % (Auto) Lymph # (Auto) [place] # (Auto) Eos # (Auto) Baso # (Auto) Abs Immat Gran (auto) Absolute Neuts (auto) Absolute Nucleated RBC Nucleated RBC % (auto) PT INR Anion Gap Cancelled Estim Creat Clear Calc Cancelled Estimated GFR Cancelled Random Glucose Cancelled Lactic Acid 1.1 Calcium Cancelled Magnesium Cancelled Total Bilirubin Direct Bilirubin AST ALT Alkaline Phosphatase Ammonia 28 Troponin I High Sens B-Natriuretic Peptide Total Protein Albumin Lipase Urine Color Urine Appearance Urine pH Ur Specific [place] Urine Protein Urine Glucose (UA) Urine Ketones Urine Blood Urine Nitrite Ur Leukocyte Esterase Urine RBC Urine WBC Ur Squamous Epith Cells Urine Bacteria Hyaline Casts Urine Opiates Screen Urine Fentanyl Screen Ur Barbiturates Screen Ur Phencyclidine Scrn Ur Amphetamines Screen U Benzodiazepines Scrn Urine Cocaine Screen U Marijuana (THC) Screen Ethyl Alcohol Cancelled 08/30/22 08/30/22 08/30/22 02:48 02:48 02:48 MCV MCH MCHC RDW Plt Count MPV Immature Gran % (Auto) Neut % (Auto) Lymph % (Auto) [place] % (Auto) Eos % (Auto) Baso % (Auto) Lymph # (Auto) [place] # (Auto) Eos # (Auto) Baso # (Auto) Abs Immat Gran (auto) Absolute Neuts (auto) Absolute Nucleated RBC Nucleated RBC % (auto) PT INR Anion Gap Estim Creat Clear Calc Estimated GFR Random Glucose Lactic Acid Calcium Magnesium Total Bilirubin Direct Bilirubin AST ALT Alkaline Phosphatase Ammonia Troponin I High Sens 2.9 B-Natriuretic Peptide 13 Total Protein Albumin Lipase Urine Color Red A Urine Appearance Cloudy Urine pH 5.5 Ur Specific [place] 1.015 Urine Protein 300 (3+) H Urine Glucose (UA) Negative Urine Ketones Negative Urine Blood Large (3+) H Urine Nitrite Negative Ur Leukocyte Esterase Large (3+) H Urine RBC >20 H Urine WBC >50 H Ur Squamous Epith Cells 0-2 Urine Bacteria Trace Hyaline Casts 11-20 Urine Opiates Screen Urine Fentanyl Screen Ur Barbiturates Screen Ur Phencyclidine Scrn Ur Amphetamines Screen U Benzodiazepines Scrn Urine Cocaine Screen U Marijuana (THC) Screen Ethyl Alcohol 08/30/22 02:48 MCV MCH MCHC RDW Plt Count MPV Immature Gran % (Auto) Neut % (Auto) Lymph % (Auto) [place] % (Auto) Eos % (Auto) Baso % (Auto) Lymph # (Auto) [place] # (Auto) Eos # (Auto) Baso # (Auto) Abs Immat Gran (auto) Absolute Neuts (auto) Absolute Nucleated RBC Nucleated RBC % (auto) PT INR Anion Gap Estim Creat Clear Calc Estimated GFR Random Glucose Lactic Acid Calcium Magnesium Total Bilirubin Direct Bilirubin AST ALT Alkaline Phosphatase Ammonia Troponin I High Sens B-Natriuretic Peptide Total Protein Albumin Lipase Urine Color Urine Appearance Urine pH Ur Specific [place] Urine Protein Urine Glucose (UA) Urine Ketones Urine Blood Urine Nitrite Ur Leukocyte Esterase Urine RBC Urine WBC Ur Squamous Epith Cells Urine Bacteria Hyaline Casts Urine Opiates Screen Not Detected Urine Fentanyl Screen Not Detected Ur Barbiturates Screen Not Detected Ur Phencyclidine Scrn Not Detected Ur Amphetamines Screen Not Detected U Benzodiazepines Scrn Not Detected Urine Cocaine Screen Not Detected U Marijuana (THC) Screen Not Detected Ethyl Alcohol Assessment and Plan (1) Dementia: Status: Acute Plan 81F PMH htn, dementia, presented with flank pain, EMS noted concern for living conditions, incidental finding of RLL PE bilateral flank pain, uti recent ureteral stent placed rocephin, cultures, eval acute RLL PE lovenox, change to oral if no intervention alzheimers dementia with concern for living situiation conitnue aricept htn lisiniopirl full code reason for continued hospitalization: gu eval for ongoing flank pain, awaiting cultures Time Spent With Patient Time: Total time managing care of this patient today ____ minutes. Quality Stroke Does the patient have a stroke diagnosis?: No VTE Prior VTE?: No VTE Risk Level:: Medical - moderate - high VTE Device Contraindication: Treatment Not Indicated VTE Drug Contraindication: Treatment Not Indicated
--- NOTE | 2022-08-30 10:08 | PM.UROCN ---
History of Present Illness Consult details Consult date: 08/30/22 Narrative: Asha is an 81 year old female with h/o dementia on aricept, ED records reviewed; the patient was recently discharged from [facility] where she had a ureteral stent placed for obstructive uropathy from stone and treated for UTI, represented to [facility] ED prior to this admission and sent home on macrobid. Medicine noted PE on imaging. Urine c/s pending. Pt with flank pain likely secondary to presence of stent. CT imaging ureteral stent in normal positioning. No surgical intervention indicated at this time. Expect hematuria due to stent, with anticoagulation. Review of Systems Review of Systems: limited due to dementia, 10 point ROS otherwise negative other then stated [facility] Past Medical History Medical History Cognitive impairment Hypertension Kidney stone Sepsis Social History Social History Household Members: None Housing: House Do you presently have visiting nurse or other home services: No Alcohol intake: never Patient Tobacco Use Status: Never used Tobacco Meds Allergies Allergy/AdvReac Type Severity Reaction Status Date / Time codeine [CODEINE] Allergy Unknown VOMITING Unverified 11/13/19 16:24 morphine [MORPHINE] Allergy Unknown VOMIT Unverified 11/13/19 16:24 Penicillins [PENICILLINS] Allergy Unknown UNKNOWN Unverified 11/13/19 16:24 prednisone [PREDNISONE] Allergy Unknown HEADACHE Unverified 11/13/19 16:24 Sulfa (Sulfonamide Allergy Unknown UNKNOWN Unverified 11/13/19 16:24 Antibiotics) [SULFA (SULFONAMIDE ANTIBIOTICS)] From CEFTIN Allergy Unknown VOMITTING Uncoded 11/13/19 16:24 From DEMEROL Allergy Unknown VOMITTING Uncoded 11/13/19 16:24 Active Medications: Current Medications Acetaminophen (Acetaminophen 325 Mg Tablet) 650 mg PO Q6H PRN PRN Reason: Pain, Mild (Pain Scale 1-3) Donepezil HCl (Donepezil Hcl 10 Mg Tablet) 10 mg PO BEDTIME JODI Enoxaparin Sodium (Enoxaparin Sodium 80 Mg/0.8 Ml Syringe) 70 mg SUBCUT Q12H JODI Last Admin: 08/30/22 07:05 Dose: 70 mg Ceftriaxone Sodium 1 gm/ (Sodium Chloride) 50 mls @ 100 mls/hr IV Q24H JODI Lisinopril (Lisinopril 10 Mg Tablet) 30 mg PO DAILY JODI; Protocol Melatonin (Melatonin 3 Mg Tablet) 6 mg PO BEDTIME PRN PRN Reason: Insomnia Multivitamins/Vitamin C (Multivitamin Tablet) 1 tab PO DAILY [facility] Ondansetron HCl (Ondansetron Hcl 4 Mg/2 Ml Vial) 4 mg IVPUSH Q8H PRN PRN Reason: Nausea and Vomiting Pharmacy Consult (Consult Rx Perform Med Rec) 1 each MISCELLANE ONCE PRN PRN Reason: Consult order Sodium Chloride (0.9 % Sodium Chloride Flush 3 Ml Syringe) 3 ml IVFLUSH QSHIFT [facility] Last Admin: 08/30/22 07:06 Dose: 3 ml Home Medications Medication Instructions Recorded Confirmed Last Taken Type donepezil 10 mg tablet 10 mg PO BEDTIME 08/30/22 08/30/22 Unknown History lisinopril 30 mg tablet 30 mg PO DAILY 08/30/22 08/30/22 Unknown History multivitamin 1 tab PO DAILY 08/30/22 08/30/22 Unknown History Physical Exam Vital Signs: Vital Signs: Last Vital Signs Temp 97.6 F 08/30/22 09:32 Pulse 71 08/30/22 09:32 Resp 18 08/30/22 09:32 BP 172/78 H 08/30/22 09:32 Pulse Ox 97 08/30/22 09:32 O2 Del Method Room Air 08/30/22 09:32 BMI result Body Mass Index 29.4 Const: General: cooperative and no acute distress Orientation/consciousness: patient oriented x3 HEENT: Head: Yes normal to inspection, Yes normocephalic and Yes atraumatic Eyes: Conjunctivae: conjunctivae normal Neck: Neck: Yes normal visual inspection and Yes trachea midline Chest: Chest palpation & inspection: normal inspection of the chest Resp: Effort & Inspection: normal respiratory effort Cardio: Rate: regular rate GI: Other: mild tenderness on right side Inspection: Yes normal to inspection Palpation (GI): Soft to palpation Neuro: General: patient oriented x3 Psych: Appearance: grossly normal Results Labs 08/30/22 02:48 08/30/22 02:48 Labs: Abnormal lab results 08/30/22 08/30/22 08/30/22 Range/Units 02:48 02:48 02:48 Immature Gran % (Auto) 0.7 H (0.0-0.4) % Abs Immat Gran (auto) 0.04 H (0.00-0.03) X10*3/uL Carbon Dioxide 18 L (22-29) mmol/L BUN 18 H (9-16) mg/dL Alkaline Phosphatase 163 H (39-117) U/L Lipase 93 H (8-78) U/L Urine Color Red A Urine Protein 300 (3+) H (Neg-Trace) mg/dL Urine Blood Large (3+) H (Negative) Ur Leukocyte Esterase Large (3+) H (Negative) Urine RBC >20 H (0-2) /HPF Urine WBC >50 H (0-5) /HPF Short CBC 08/30/22 Range/Units 02:48 WBC 6.1 (4.8-10.8) X10*3/uL Hgb 13.3 (12.0-16.0) g/dl Hct 40.5 (37.0-47.0) % Plt Count 369 (160-400) X10*3/uL BMP 08/30/22 08/30/22 02:48 02:48 Sodium 138 Cancelled Potassium 3.7 Cancelled Chloride 107 Cancelled Carbon Dioxide 18 L Cancelled BUN 18 H Cancelled Creatinine 0.70 Cancelled Calcium 9.6 Cancelled Liver Function 08/30/22 Range/Units 02:48 Total Bilirubin 0.8 (0.0-1.0) mg/dL Direct Bilirubin 0.3 (0.0-0.5) mg/dL AST 23 (5-31) U/L ALT 12 (0-31) U/L Alkaline Phosphatase 163 H (39-117) U/L Albumin 3.5 (3.5-5.0) g/dL Urine 08/30/22 Range/Units 02:48 Urine Color Red A Urine Appearance Cloudy Urine pH 5.5 (5.0-9.0) Ur Specific [place] 1.015 (1.005-1.025) Urine Protein 300 (3+) H (Neg-Trace) mg/dL Urine Glucose (UA) Negative (Negative) mg/dL Imaging Abdomen CT scan report/results: report reviewed and image reviewed CT scan - pelvis: report reviewed and image reviewed Additional studies: Date of Service: 08/30/22 EXAMINATION: CT ABDOMEN AND PELVIS WITH CONTRAST? CLINICAL INFORMATION: Diffuse abdominal pain? COMPARISON: 10/15/2014 TECHNIQUE: Multidetector volumetric images were obtained from the superior aspect of the liver through the pubic symphysis following administration 85 mL of Omnipaque 350 intravenous contrast. Sagittal and coronal reformatted images were obtained on the technologist's workstation.? Oral contrast: No This CT examination was performed using dose optimization techniques as appropriate, variously including the following: *Automated exposure control *Adjustment of mA and/or kV according to patient size (this includes techniques or standardized protocols for targeted exams where dose is matched to indication/reason for exam; i.e. extremities or head) *Use of iterative reconstruction technique DLP: 546 mGy-cm FINDINGS: LUNG BASES: Incidental filling defects in the right lower lobe posterior basal segmental pulmonary arteries. Patchy low density opacities in the right lower lobe posteriorly may represent corresponding evolving pulmonary infarcts or ischemic pneumonitis with or without atelectasis. LIVER, GALLBLADDER, AND BILIARY TREE: The liver is normal in size, shape, and attenuation. Subcentimeter cyst in hepatic segment 5. No suspicious hepatic lesion or no intra or extrahepatic biliary ductal dilatation is present. The gallbladder is unremarkable with no evidence of radiopaque gallstones, gallbladder wall thickening, or obvious pericholecystic inflammatory changes.? PANCREAS: Unremarkable.? SPLEEN: Unremarkable.? ADRENAL GLANDS: Unremarkable.? KIDNEYS AND URETERS: Left nephroureteral stent in place. Mild accompanying urothelial thickening and hyperemia may relate to chronic inflammation from the indwelling stent. Tiny calcifications layer dependently within the left renal pelvis, and in the inferior left renal calyces. Further assessment is confounded by trace urographic leak screening contrast bilaterally. Kidneys enhance symmetrically. No hydronephrosis. There are a few subcentimeter renal cysts which are simple in appearance. No follow-up imaging recommended. BLADDER: Decompressed by Smith catheter.? GASTROINTESTINAL TRACT: Small sliding-type hiatal hernia. Stomach otherwise unremarkable. Normal small bowel. Scattered colonic diverticula, most concentrated within the sigmoid colon. No evidence of diverticulitis.? ABDOMINAL WALL: No significant hernia is appreciated.? LYMPH NODES: Normal. VASCULAR: Aorta is atherosclerotic but normal caliber. Patent vascular structures. PELVIC VISCERA: Hysterectomy. No adnexal abnormalities.? OSSEOUS STRUCTURES: No acute or suspicious osseous abnormalities. New but chronic appearing mild compression deformity of the L3 superior endplate. IMPRESSION: *? Incidental right lower lobe posterior basal segmental pulmonary emboli, with associated probable small pulmonary infarct(s) involving the right lower lobe posterior basal segment. *? Left nephroureteral stent in place. Tiny calcifications layer dependently within the left renal pelvis and inferior left renal calyces. *? Presumably mild reactive urothelial hyperemia of the left renal pelvis, without evidence of kian nephritis/pyelonephritis. *? Scattered colonic diverticula without evidence of diverticulitis. Assessment and Plan (1) Pulmonary embolism: Status: Acute (2) Acute UTI: Status: Acute (3) Ureteral stent present: Status: Acute Plan Flank pain likely secondary to presence of stent. CT imaging ureteral stent in normal positioning. Expect hematuria due to stent, with anticoagulation. CBI prn No surgical intervention indicated at this time, When pt stable, cont with planned [facility] urology FU Time Spent With Patient Time: Total time managing care of this patient today ____ minutes. Procedures Date of Service Date of Service: 08/30/22
--- NOTE | 2022-08-30 14:54 | MHC.CM.PN ---
CM spoke with only listed Contact/Granddaughter/Evelin@ [phone]; Evelin lives in [place] and she encouraged CM to speak with Patient's Son/Jack @ [phone] or [phone]. Per Jack(Patient has Dementia and is documented to be a poor Historian),Patient lives alone in a house and has a daily Nurse (Laisha @ [phone]/TISHA left a VM for Laisha, requesting the name of the agency she works for)and Jack states that he visits and assists his Mother QD. 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 Patient is covid vamaegan'd and her PCP is Dr. Renata Ramires in [facility]. Patient has no HCP. Documentation indicates that EMS will be filing an Elder @ risk r/t concerns over Patient's living conditions. Jack indicates that the goal is for Patient to return home, once medically cleared for dc. CM will follow.
[2022-08-31 04:00] VITALS: BP 132/62; PULSE 72; RESP 14; TEMP 36.3; O2SAT 96
[2022-08-31 05:39] LABS: MANUAL DIFF FLAG NO
[2022-08-31 05:41] LABS: Basophils Absolute Auto 0.1 X10*3/uL (0.0-0.2); Eosinophils Absolute Auto 0.1 X10*3/uL (0.0-0.4); Eosinophils Percent Auto 2.8 % (0-4); Hematocrit 37.2 % (37.0-47.0); Hemoglobin 12.3 g/dl (12.0-16.0); Imm Gran Abs Auto 0.02 X10*3/uL (0.00-0.03); Imm Gran Pct Auto 0.4 % (0.0-0.4); Lymphocytes Absolute Auto 1.5 X10*3/uL (1.2-4.9); Lymphocytes Percent Auto 30.3 % (20-40); Mean Corpuscular HGB Conc 33.1 g/dl (31.0-35.0); Mean Corpuscular Hemoglobin 28.9 pg (27.0-33.0); Mean Corpuscular Volume 87.5 fL (80.0-98.0); Mean Platelet Volume 9.6 fL (9.4-12.3); Monocytes Absolute Auto 0.6 X10*3/uL (0.1-1.2); Monocytes Percent Auto 12.6 % (2-11); Neutrophils Absolute Auto 2.7 x10*3/uL (2.0-8.3); Neutrophils Percent Auto 52.9 % (45-73); Platelet Count 378 X10*3/uL (160-400); Red Blood Count 4.25 X10*6/uL (4.20-5.50); Red Cell Distribution Width 13.9 % (11.0-16.0); White Blood Count 5.1 X10*3/uL (4.8-10.8)
[2022-08-31 05:57] LABS: Anion Gap 12 (12-20); Blood Urea Nitrogen 17 mg/dL (9-16); Calcium 9.4 mg/dL (8.4-10.2); Carbon Dioxide 21 mmol/L (22-29); Chloride 107 mmol/L (96-108); Chloride 108 mmol/L (96-108); Creatinine Clr Calc Pharmacy 51.7; Creatinine Clr Calc Pharmacy 52.4; Estimated Glomerular Filt Rate > 60; Glucose Fasting 97 mg/dL (60-99); Glucose Random 97 mg/dL (60-115); Potassium 3.9 mmol/L (3.3-5.1); Sodium 136 mmol/L (135-145); Sodium 137 mmol/L (135-145)
[2022-08-31 07:43] VITALS: BP 137/63; PULSE 75; RESP 16; TEMP 37.1; O2SAT 96
--- NOTE | 2022-08-31 09:05 | HO.PM.IMPN ---
Subjective Subjective Date of Service: 08/31/22 Interval History: pain better Physical Exam Vital Signs: Vital Signs: Last Vital Signs Temp 98.8 F 08/31/22 07:43 Pulse 75 08/31/22 07:43 Resp 16 08/31/22 07:43 BP 137/63 08/31/22 07:43 Pulse Ox 96 08/31/22 07:43 O2 Del Method Room Air 08/31/22 07:43 BMI result Body Mass Index 29.4 Const: General: cooperative and no acute distress Orientation/consciousness: patient oriented x3 HEENT: Head: Yes normal to inspection, Yes normocephalic and Yes atraumatic Eyes: Conjunctivae: conjunctivae normal Neck: Neck: Yes normal visual inspection and Yes trachea midline Chest: Chest palpation & inspection: normal inspection of the chest Resp: Effort & Inspection: normal respiratory effort Cardio: Rate: regular rate GI: Other: mild tenderness on right side Inspection: Yes normal to inspection Palpation (GI): Soft to palpation Neuro: General: patient oriented x3 Psych: Appearance: grossly normal Objective Data Active Medications Acetaminophen (Acetaminophen 325 Mg Tablet) 650 mg PO Q6H PRN PRN Reason: Pain, Mild (Pain Scale 1-3) Last Admin: 08/30/22 10:11 Dose: 650 mg Documented By: TRUNG Donepezil HCl (Donepezil Hcl 10 Mg Tablet) 10 mg PO BEDTIME [facility] Last Admin: 08/30/22 20:32 Dose: 10 mg Documented By: [email or web address] Enoxaparin Sodium (Enoxaparin Sodium 80 Mg/0.8 Ml Syringe) 70 mg SUBCUT Q12H [facility] Last Admin: 08/31/22 06:08 Dose: 70 mg Documented By: TYRA Ceftriaxone Sodium 1 gm/ (Sodium Chloride) 50 mls @ 100 mls/hr IV Q24H [facility] Last Infusion: 08/31/22 05:36 Dose: 0 mls/hr Documented By: TYRA Lisinopril (Lisinopril 10 Mg Tablet) 30 mg PO DAILY [facility]; Protocol Last Admin: 08/30/22 10:11 Dose: 30 mg Documented By: TRUNG Melatonin (Melatonin 3 Mg Tablet) 6 mg PO BEDTIME PRN PRN Reason: Insomnia Multivitamins/Vitamin C (Multivitamin Tablet) 1 tab PO DAILY [facility] Last Admin: 08/30/22 10:13 Dose: Not Given Documented By: TRUNG Non-Admin Reason: Patient Refused Ondansetron HCl (Ondansetron Hcl 4 Mg/2 Ml Vial) 4 mg IVPUSH Q8H PRN PRN Reason: Nausea and Vomiting Pharmacy Consult (Consult Rx Perform Med Rec) 1 each MISCELLANE ONCE PRN PRN Reason: Consult order Sodium Chloride (0.9 % Sodium Chloride Flush 3 Ml Syringe) 3 ml IVFLUSH QSHIFT [facility] Last Admin: 08/31/22 00:26 Dose: 3 ml Documented By: TYRA Labs 08/31/22 05:27 08/31/22 05:27 Labs: Laboratory Results - last 24 hr 08/31/22 08/31/22 08/31/22 05:27 05:27 05:27 MCV 87.5 MCH 28.9 MCHC 33.1 RDW 13.9 Plt Count 378 MPV 9.6 Immature Gran % (Auto) 0.4 Neut % (Auto) 52.9 Lymph % (Auto) 30.3 [place] % (Auto) 12.6 H Eos % (Auto) 2.8 Baso % (Auto) 1.0 Lymph # (Auto) 1.5 [place] # (Auto) 0.6 Eos # (Auto) 0.1 Baso # (Auto) 0.1 Abs Immat Gran (auto) 0.02 Absolute Neuts (auto) 2.7 Absolute Nucleated RBC 0.000 Nucleated RBC % (auto) 0.0 Anion Gap 12 12 Estim Creat Clear Calc 52.4 51.7 Estimated GFR > 60 > 60 Random Glucose 97 Fasting Glucose 97 Calcium 9.4 9.4 Microbiology Microbiology Results: Microbiology 08/30/22 02:48 Blood Culture - Preliminary Blood - Venous No growth after 24 hours. 08/30/22 02:49 Blood Culture - Preliminary Blood - Venous No growth after 24 hours. Assessment and Plan (1) Dementia: Status: Acute Plan 81F PMH htn, dementia, presented with flank pain, EMS noted concern for living conditions, incidental finding of RLL PE bilateral flank pain, uti recent ureteral stent placed rocephin, cultures, appreciated - no acute intervention acute RLL PE will change to elliquis 10mg bid for 7 days then 5mg bid alzheimers dementia with concern for living situiation conitnue aricept htn lisinopril full code reason for continued hospitalization: safe dispo Time Spent With Patient Time: Total time managing care of this patient today ____ minutes. Quality Stroke Does the patient have a stroke diagnosis?: No VTE Prior VTE?: No VTE Risk Level:: Medical - moderate - high VTE Device Contraindication: Treatment Not Indicated VTE Drug Contraindication: Treatment Not Indicated
--- NOTE | 2022-08-31 10:15 | PM.DS ---
DS: Providers Provider Date of Service: 08/31/22 Date of admission: 08/30/22 06:24 Primary care physician: Unknown Physician Consults: 08/30/22 05:49 Consult to Psychiatry Routine Consulting Provider: Psych Covering Reason for consultation: Assessment for capacity 08/30/22 08:19 Consult to Urology Routine Consulting Provider: Bethel Mabry Reason for consultation: flank pain, recent ureteral stent DS: Diagnosis Discharge Diagnosis (1) Dementia: Status: Acute DS: Summary Hospital Course Hospital Course: from initial hpi: 81-year-old female with pertinent history of essential hypertension, dementia presents to the emergency department for evaluation of abdominal pain.? Patient was recently admitted with urosepsis secondary to obstructing stone status post ureteral stent placement and completed 7 day course of ceftriaxone.? Patient was discharged with Smith in place on 08/25 for urine retention.? She has an appointment with Urology on 09/13 for Smith removal and voiding trial.? Patient is a poor historian.? As per EMS, patient's current living situation is not good and they recommend that the patient not be discharged to her current residence.? History obtained from chart review and ER provider.? Unable to obtain review of systems. In the emergency department, imaging with PE hospital course: Patient was admitted for bilateral flank pain due to your check infection in recently placed ureteral stent. She was she was ceftriaxone, cultures still pending, was seen by who recommended no acute intervention, pain resolved. Patient will be discharged on 3 more days of cefpodoxime. Patient also incidentally found to have acute right lower lobe pulmonary embolism, initiated on apixaban 10 mg b.i.d. for 7 days then will decrease to 5 mg b.i.d.. For Alzheimer's dementia she was continued on Aricept, she will be followed as outpatient as elder risk. For hypertension she will continue on lisinopril. Patient is feeling better will be discharged home. Time Spent with Patient Time attestation: Total time managing care of this patient today ____ minutes. Discharge coordination time: Greater than 30 minutes Quality: Safe Use of Opioids Does Pt have an Active Cancer Diagnosis on the Problem List?: No Quality: Stroke Does the patient have a stroke diagnosis?: No Physical Exam Vital Signs: Vital Signs: Last Vital Signs Temp 98.8 F 08/31/22 07:43 Pulse 75 08/31/22 07:43 Resp 16 08/31/22 07:43 BP 137/63 08/31/22 07:43 Pulse Ox 96 08/31/22 07:43 O2 Del Method Room Air 08/31/22 07:43 BMI result Body Mass Index 29.4 Const: General: cooperative and no acute distress Orientation/consciousness: patient oriented x3 HEENT: Head: Yes normal to inspection, Yes normocephalic and Yes atraumatic Eyes: Conjunctivae: conjunctivae normal Neck: Neck: Yes normal visual inspection and Yes trachea midline Chest: Chest palpation & inspection: normal inspection of the chest Resp: Effort & Inspection: normal respiratory effort Cardio: Rate: regular rate GI: Other: mild tenderness on right side Inspection: Yes normal to inspection Palpation (GI): Soft to palpation Neuro: General: patient oriented x3 Psych: Appearance: grossly normal DS: Data Data Completed and Pending Labs on day of discharge: Laboratory Results - last 24 hr 08/31/22 08/31/22 08/31/22 05:27 05:27 05:27 WBC 5.1 RBC 4.25 Hgb 12.3 Hct 37.2 MCV 87.5 MCH 28.9 MCHC 33.1 RDW 13.9 Plt Count 378 MPV 9.6 Immature Gran % (Auto) 0.4 Neut % (Auto) 52.9 Lymph % (Auto) 30.3 [place] % (Auto) 12.6 H Eos % (Auto) 2.8 Baso % (Auto) 1.0 Lymph # (Auto) 1.5 [place] # (Auto) 0.6 Eos # (Auto) 0.1 Baso # (Auto) 0.1 Abs Immat Gran (auto) 0.02 Absolute Neuts (auto) 2.7 Absolute Nucleated RBC 0.000 Nucleated RBC % (auto) 0.0 Sodium 136 137 Potassium 3.9 4.0 Chloride 107 108 Carbon Dioxide 21 L 21 L Anion Gap 12 12 BUN 17 H 17 H Creatinine 0.73 0.74 Estim Creat Clear Calc 52.4 51.7 Estimated GFR > 60 > 60 Random Glucose 97 Fasting Glucose 97 Calcium 9.4 9.4 Preliminary micro results at discharge 08/30/22 02:48 Blood Culture - Preliminary Blood - Venous No growth after 24 hours. 08/30/22 02:49 Blood Culture - Preliminary Blood - Venous No growth after 24 hours. Discharge Plan Discharge Anticipated Discharge Date/Time: 08/31/22 10:11 Patient Disposition: Home Health Service Discharge Diagnosis: uti, pe Referrals: Physician,Unknown J [Primary Care Provider] - 1 Week Discharge Medications: New Eliquis 5 mg Tablet 10 mg PO BID Qty: 72 0RF Rx Instructions: 10mg bid for 7 days, then decrease to 5mg bid cefpodoxime 100 mg tablet 100 mg PO BID Qty: 6 0RF Rx Instructions: must administer with a meal/food Continued multivitamin Tablet 1 tab PO DAILY donepezil 10 mg tablet 10 mg PO BEDTIME lisinopril 30 mg tablet 30 mg PO DAILY Discharge Orders: Discharge Order (Routine); Ordered 08/31/22 Ordered By: Collin Ponce Diet: Advance to usual diet Activity on Discharge: As tolerated Stand Alone Forms: Patient Portal Discharge page Care Plan Goals: recovery Health Concerns: pe, uti Plan of Treatment: eliquis 10mg bid for 7 days, then 5mg bid, vantin for 3 more days, follow up urlology Assessment: see above
--- NOTE | 2022-08-31 10:42 | MHC.CM.PN ---
Addendum entered by Laura Sin 08/31/22 12:55: TISHA MET WITH PT TO DISCUSS COMPLETING A HCP PT REPORTS SHE WOULD LIKE TO ASSIGN HER SON, MACHELLE, HE IS THE ONLY ONE IN THE AREA HCP COMPLETED COPIES GIVEN TO PT AND HER SON COPY ALSO SCANNED INTO [facility] AND PLACED IN PTS CHART Addendum entered by Laura Sin 08/31/22 10:44: TISHA CALLED DUSTIN [phone], THE NURSE WHO VISITS THE PT AT HOME DUSTIN REPORTS SHE WORKS FOR [employer] DUSTIN NOW AWARE PT WILL DC TODAY, SHE STATES SHE WILL RESUME CARE TOMORROW REFERRAL PLACED TO [facility] Original Note: PT CLEARED TO DC HOME TODAY TISHA CALLED PTS SON, MACHELLE [phone] TO INFORM HIM OF DC HE REPORTS HE CAN TRANSPORT PT AT 1200 HOURS RN AND PT AWARE
== END 2022-08-31 13:06 | disposition home health service (06) | DRG 698 ==
LOC: HO.ED 06:29 → HO.EDOVER 06:35 → HO.S3 08:16
PROVIDERS: Admitting Provider Student in an Organized Health Care Education/Training Program; Emergency Provider Emergency Medicine; PCP Internal Medicine; Visit Provider Internal Medicine
DX: T83.511A Infection and inflammatory reaction due to indwelling urethral catheter, initial encounter (principal); I26.99 Other pulmonary embolism without acute cor pulmonale; I10 Essential (primary) hypertension; N39.0 Urinary tract infection, site not specified; G30.9 Alzheimer's disease, unspecified; F02.80 Dementia in other diseases classified elsewhere, unspecified severity, without behavioral disturbance, psychotic disturbance, mood disturbance, and anxiety; Z59.19 Other inadequate housing; Z88.0 Allergy status to penicillin; Z88.1 Allergy status to other antibiotic agents; Z88.2 Allergy status to sulfonamides; Z79.899 Other long term (current) drug therapy
CPT/HCPCS: 36415; 74177; 80048; 80053; 80076; 80307; 81001; 81003; 82140; 82248; 83605; 83690; 83735; 83880; 84484; 85025; 85610; 87040; 87086; 93005; 99221; 99285; J0696; J1650; J2405; Q9967

== ENCOUNTER 2022-09-04 16:12 | Emergency (ER) | payer MEDICARE, SELFPAY ==
[2022-09-04 16:26] VITALS: BP 124/74; BP 139/64; PULSE 83; PULSE 87; RESP 14; TEMP 36.6; O2SAT 95; O2SAT 98; BMI 28.7
--- NOTE | 2022-09-04 16:27 | ED_ITS ---
HPI - Back Pain/Injury General Chief Complaint: Urogenital-Female Stated Complaint: LOWER BACK PAIN KIDNEY INFECTION HX Time Seen by Provider: 09/04/22 16:24 Source: patient Mode of arrival: EMS Limitations: no limitations History of Present Illness HPI Narrative: Patient 81 years old with history of hypertension, dementia , PE on Eliquis with recent history of left ureteric stone status post stent placement was septic a week ago seen here on 08/30 discharged 08/31 as patient complained of back pain but patient denied when she arrived to the ER vital stable no fever no chills patient does have indwelling urinary catheter patient just finished cefpodoxime and previous urine culture was negative Related Data Home Medications Medication Instructions Recorded Confirmed donepezil 10 mg tablet 10 mg PO BEDTIME 08/30/22 08/30/22 lisinopril 30 mg tablet 30 mg PO DAILY 08/30/22 08/30/22 multivitamin 1 tab PO DAILY 08/30/22 08/30/22 Previous Rx's Medication Instructions Recorded apixaban 5 mg tablet (Eliquis) 10 mg PO BID #72 tabs 08/31/22 cefpodoxime 100 mg tablet 100 mg PO BID #6 tabs 08/31/22 ciprofloxacin HCl 250 mg tablet 250 mg PO BID #20 tabs 09/04/22 (Cipro) Allergies Allergy/AdvReac Type Severity Reaction Status Date / Time codeine [CODEINE] Allergy Unknown VOMITING Verified 09/04/22 16:25 morphine [MORPHINE] Allergy Unknown VOMIT Verified 09/04/22 16:25 Penicillins [PENICILLINS] Allergy Unknown UNKNOWN Verified 09/04/22 16:25 prednisone [PREDNISONE] Allergy Unknown HEADACHE Verified 09/04/22 16:25 Sulfa (Sulfonamide Allergy Unknown UNKNOWN Verified 09/04/22 16:25 Antibiotics) [SULFA (SULFONAMIDE ANTIBIOTICS)] From CEFTIN Allergy Unknown VOMITTING Uncoded 11/13/19 16:24 From DEMEROL Allergy Unknown VOMITTING Uncoded 11/13/19 16:24 Review of Systems Review of Systems: Yes all other systems are reviewed and are negative PMFSH Past Medical History Medical History Cognitive impairment Hypertension Kidney stone Sepsis Social History Social History Household Members: None Housing: House Do you presently have visiting nurse or other home services: No Alcohol intake: never Patient Tobacco Use Status: Never used Tobacco Smoked in Last 30 Days: No Use of substances other than those prescribed or required for medical reasons: No Advance Directives: No Advance Directives Information Provided: Yes service: No Physical Exam Vital Signs: Vital Signs: Last Vital Signs Temp 97.5 F 09/04/22 17:25 Pulse 76 09/04/22 17:25 Resp 14 09/04/22 17:25 BP 121/52 L 09/04/22 17:25 Pulse Ox 98 09/04/22 17:25 O2 Del Method Room Air 09/04/22 17:25 BMI result Body Mass Index 28.7 Appearance: Alert. Oriented X2. No acute distress. ENT: Pharynx normal. Oral Mucosa moist Neck: Normal inspection. Neck supple. CVS: Normal heart rate and rhythm. Pulses normal. Respiratory: No respiratory distress. Equal air entry bilateral, no wheezing/rales/rhonchi Abdomen: Soft and nontender. Bowel sounds are present, no mass palpable, no CVA tenderness Skin: Skin warm and dry. Normal skin color. Normal skin turgor. Extremities: No lower extremity edema. No calf tenderness Neuro: Oriented X 3. No motor deficit. Medications Administered Discontinued Medications Generic Name Dose Route Start Last Admin Trade Name Freq PRN Reason Stop Dose Admin Ceftriaxone Sodium 1 gm/ 50 mls @ 100 mls/hr 09/04/22 18:41 09/04/22 19:48 Sodium Chloride IV 09/04/22 19:10 100 mls/hr ONCE ONE Administration Sodium Chloride 1,000 mls @ 999 mls/hr 09/04/22 18:42 09/04/22 19:48 Ns IV 09/04/22 19:42 999 mls/hr .Q1H1M ONE Administration Medical Decision Making Medical Decision Making MDM Narrative: Patient on Eliquis status post ureteric stent slight hematuria afebrile normal WBC count Luke lactic acid was 2.2 patient received IV fluids and IV Rocephin discharge patient home on Cipro advised to follow-up with urologist Lab Data MDM Lab Attestation statement: I reviewed the patient's lab results. 09/04/22 16:51 09/04/22 16:51 Labs: Lab Results 09/04/22 09/04/22 09/04/22 Range/Units 16:51 16:51 16:51 WBC 4.2 L (4.8-10.8) X10*3/uL RBC 4.47 (4.20-5.50) X10*6/uL Hgb 12.6 (12.0-16.0) g/dl Hct 38.9 (37.0-47.0) % MCV 87.0 (80.0-98.0) fL MCH 28.2 (27.0-33.0) pg MCHC 32.4 (31.0-35.0) g/dl RDW 13.6 (11.0-16.0) % Plt Count 439 H (160-400) X10*3/uL MPV 9.4 (9.4-12.3) fL Immature Gran % (Auto) 0.5 H (0.0-0.4) % Neut % (Auto) 49.8 (45-73) % Lymph % (Auto) 33.4 (20-40) % [place] % (Auto) 12.5 H (2-11) % Eos % (Auto) 2.6 (0-4) % Baso % (Auto) 1.2 (0-2) % Lymph # (Auto) 1.4 (1.2-4.9) X10*3/uL [place] # (Auto) 0.5 (0.1-1.2) X10*3/uL Eos # (Auto) 0.1 (0.0-0.4) X10*3/uL Baso # (Auto) 0.1 (0.0-0.2) X10*3/uL Abs Immat Gran (auto) 0.02 (0.00-0.03) X10*3/uL Absolute Neuts (auto) 2.1 (2.0-8.3) x10*3/uL Absolute Nucleated RBC 0.000 (0.0-0.012) X10*3/uL Nucleated RBC % (auto) 0.0 (0.0-0.2) /100WBC Sodium 138 (135-145) mmol/L Potassium 3.3 (3.3-5.1) mmol/L Chloride 107 (96-108) mmol/L Carbon Dioxide 19 L (22-29) mmol/L Anion Gap 15 (12-20) BUN 10 (9-16) mg/dL Creatinine 0.75 (0.5-1.4) mg/dL Estim Creat Clear Calc 50.4 Estimated GFR > 60 Random Glucose 109 (60-115) mg/dL Lactic Acid 2.2 H* (0.5-2.0) mmol/L Lactic Acid F/U @ 2Hr (0.5-2.0) mmol/L Calcium 10.4 H D (8.4-10.2) mg/dL Urine Color Urine Appearance Urine pH (5.0-9.0) Ur Specific [place] (1.005-1.025) Urine Protein (Neg-Trace) mg/dL Urine Glucose (UA) (Negative) mg/dL Urine Ketones (Negative) mg/dL Urine Blood (Negative) Urine Nitrite (Negative) Ur Leukocyte Esterase (Negative) Urine RBC (0-2) /HPF Urine WBC (0-5) /HPF Ur Squamous Epith Cells (0-2) /HPF Urine Bacteria (None Seen) Hyaline Casts (0-2) /LPF Urine Yeast 09/04/22 09/04/22 Range/Units 17:16 19:38 WBC (4.8-10.8) X10*3/uL RBC (4.20-5.50) X10*6/uL Hgb (12.0-16.0) g/dl Hct (37.0-47.0) % MCV (80.0-98.0) fL MCH (27.0-33.0) pg MCHC (31.0-35.0) g/dl RDW (11.0-16.0) % Plt Count (160-400) X10*3/uL MPV (9.4-12.3) fL Immature Gran % (Auto) (0.0-0.4) % Neut % (Auto) (45-73) % Lymph % (Auto) (20-40) % [place] % (Auto) (2-11) % Eos % (Auto) (0-4) % Baso % (Auto) (0-2) % Lymph # (Auto) (1.2-4.9) X10*3/uL [place] # (Auto) (0.1-1.2) X10*3/uL Eos # (Auto) (0.0-0.4) X10*3/uL Baso # (Auto) (0.0-0.2) X10*3/uL Abs Immat Gran (auto) (0.00-0.03) X10*3/uL Absolute Neuts (auto) (2.0-8.3) x10*3/uL Absolute Nucleated RBC (0.0-0.012) X10*3/uL Nucleated RBC % (auto) (0.0-0.2) /100WBC Sodium (135-145) mmol/L Potassium (3.3-5.1) mmol/L Chloride (96-108) mmol/L Carbon Dioxide (22-29) mmol/L Anion Gap (12-20) BUN (9-16) mg/dL Creatinine (0.5-1.4) mg/dL Estim Creat Clear Calc Estimated GFR Random Glucose (60-115) mg/dL Lactic Acid (0.5-2.0) mmol/L Lactic Acid F/U @ 2Hr 0.9 (0.5-2.0) mmol/L Calcium (8.4-10.2) mg/dL Urine Color RED Urine Appearance Turbid Urine pH 5.5 (5.0-9.0) Ur Specific [place] 1.020 (1.005-1.025) Urine Protein 100 (2+) H (Neg-Trace) mg/dL Urine Glucose (UA) Negative (Negative) mg/dL Urine Ketones Trace (Negative) mg/dL Urine Blood Large (3+) H (Negative) Urine Nitrite Positive H (Negative) Ur Leukocyte Esterase Moderate (2+) H (Negative) Urine RBC >20 H (0-2) /HPF Urine WBC 21-50 (0-5) /HPF Ur Squamous Epith Cells 0-2 (0-2) /HPF Urine Bacteria 3+ (None Seen) Hyaline Casts 3-5 (0-2) /LPF Urine Yeast Present Discharge Plan Discharge Clinical Impression: Acute UTI Patient Disposition: Home, Self-Care Instructions: Urinary Tract Infection in Women (ED) Additional Instructions: Take antibiotics as prescribed Follow with urologist Report to the ER if high fever worsening of the back pain/vomiting Prescriptions: New ciprofloxacin HCl [Cipro] 250 mg tablet 250 mg PO BID Qty: 20 0RF No Action multivitamin Tablet 1 tab PO DAILY donepezil 10 mg tablet 10 mg PO BEDTIME lisinopril 30 mg tablet 30 mg PO DAILY Eliquis 5 mg Tablet 10 mg PO BID Qty: 72 0RF Rx Instructions: 10mg bid for 7 days, then decrease to 5mg bid cefpodoxime 100 mg tablet 100 mg PO BID Qty: 6 0RF Rx Instructions: must administer with a meal/food Interventions: ED Discharge Assessment Last Done: 09/04/22 22:37 Discharge Date/Time: 09/04/22 22:38
--- NOTE | 2022-09-04 16:38 | PC.NURSE ---
pt a&ox3, vss, pt brought in by [facility] because the pt's home health aide insisted that she come here because she has kidney issues and the pt was stating that she had back pain, the pt states that she does not know why she's here because she's in no pain.
[2022-09-04 17:22] LABS: Anion Gap 15 (12-20); Blood Urea Nitrogen 10 mg/dL (9-16); Calcium 10.4 mg/dL (8.4-10.2); Carbon Dioxide 19 mmol/L (22-29); Chloride 107 mmol/L (96-108); Creatinine Clr Calc Pharmacy 50.4; Estimated Glomerular Filt Rate > 60; Glucose Random 109 mg/dL (60-115); Potassium 3.3 mmol/L (3.3-5.1); Sodium 138 mmol/L (135-145)
[2022-09-04 17:25] VITALS: BP 121/52; PULSE 76; RESP 14; TEMP 36.4; O2SAT 98
--- NOTE | 2022-09-04 17:29 | PC.NURSE ---
pt a&ox3, vss, pt's michaud catheter demonstrating dark red urine which pt states has been normal recently d/t kidney issues, pt states that she does not know why she's here and states that she is taking up a bed from someone who is really sick, reminded patient that we are waiting for her urine results to come back from the lab, pt remaining calm and cooperative, call quinn placed within reach, will continue to monitor.
[2022-09-04 17:42] LABS: Lactic Acid 2.2 mmol/L (0.5-2.0)
[2022-09-04 17:48] LABS: Appearance Urine Turbid; Color Urine RED; Glucose Urine UA Negative (Negative); Leukocyte Esterase Urine Moderate (2+) (Negative); Nitrite Urine Positive (Negative); PH 5.5 (5.0-9.0); UMIC TRIGGER UACC YES; Urine Blood Large (3+) (Negative); Urine Ketones Trace mg/dL (Negative); Urine Protein 100 (2+) mg/dL (Neg-Trace)
[2022-09-04 18:08] LABS: Bacteria Urine 3+ (None Seen); RBC Urine >20 /HPF (0-2); Squamous Epithelial Cell Urine 0-2 /HPF (0-2); UACC Culture Trigger YES; WBC Urine 21-50 /HPF (0-5)
[2022-09-04 18:58] LABS: Reflex Lactate? Lactic Acid Added
[2022-09-04] MEDS: cefTRIAXone sodium 1 GM in 0.9 % Sodium Chloride 50 ML IV (19:48)
[2022-09-04] MEDS: 0.9 % Sodium Chloride 1,000 ML 999 ML IV (19:48)
[2022-09-04 19:57] LABS: ~Lactic Acid-LAB USE ONLY 0.9 mmol/L (0.5-2.0)
--- NOTE | 2022-09-04 21:14 | PC.NURSE ---
Called pts contact on file Evelin evans. No answer, voicemail left at this time.
--- NOTE | 2022-09-04 21:24 | PC.NURSE ---
Spoke with pts son Jack who states he will be here in approximately one hour to pick pt up.
== END 2022-09-04 22:38 | disposition home or self-care (01) ==
PROVIDERS: Emergency Provider Internal Medicine
DX: N39.0 Urinary tract infection, site not specified (principal); M54.50 Low back pain, unspecified; Z79.899 Other long term (current) drug therapy
CPT/HCPCS: 36415; 80048; 81001; 83605; 85025; 87040; 87086; 87088; 87186; 96374; 99284; J0696